=== PATIENT | female | born 1980 | race Caucasian/White ===

== ENCOUNTER 2018-01-08 10:49 | Day surgery (SDC) | payer BC ==
[2018-01-07 09:31] LABS: CHLORIDE,CL 106 mmol/L (98-107); SODIUM,NA 140 mmol/L (136-145)
[2018-01-08] MEDS ORDERED: Ondansetron 4 MG/2 ML SDV ONE (11:17)
[2018-01-08] MEDS ORDERED: Propofol 200 MG/20 ML SDV ONE (11:17)
[2018-01-08] MEDS ORDERED: fentaNYL 100 MCG/2 ML SDV ONE ×2 (11:17→11:27)
[2018-01-08] MEDS ORDERED: Midazolam 1 MG/ML 2 ML SDV ONE (11:17)
[2018-01-08] MEDS ORDERED: Glycopyrrolate 0.2 MG/ML SDV ONE (11:18)
[2018-01-08] MEDS ORDERED: Rocuronium 10 MG/ML 10 ML Syringe ONE (11:18)
[2018-01-08] MEDS ORDERED: Fluorescein 5 ML Vial ONE (11:19)
[2018-01-08] MEDS ORDERED: Methylene Blue 50 MG/10 ML Ampule ONE (11:19)
[2018-01-08] MEDS ORDERED: Bupivacaine 0.25% 10 ML SDV ONE (11:20)
[2018-01-08] MEDS: Lactated Ringers 1,000 ML IV SCH ×2 (11:23→11:32)
[2018-01-08] MEDS ORDERED: Scopolamine 1.5 MG Transdermal Patch TRDERM PRN (11:27)
--- NOTE | 2018-01-08 11:27 | PCM.PREANE ---
Preanesthetic Assessment - Anesthesia/Transfusion/Family Hx Anesthesia History: Prior Anesthesia Without Reaction Other Type of Anesthesia Reaction Comment: "mother has problems with N/V after anesthesia" Family History of Anesthesia Reaction: No Transfusion History: No Prior Transfusion(s) Intubation History: Unknown - Review of Systems General: No Symptoms Pulmonary: No Symptoms Cardiovascular: No Symptoms Gastrointestinal: No Symptoms Neurological: No Symptoms Other: Reports: None - Physical Assessment Height: 1.64 m Weight: 81.647 kg ASA Class: 2 Mental Status: Alert & Oriented x3 Airway Class: Mallampati = 2 Dentition: Reports: Normal Dentition Thyro-Mental Finger Breadths: 3 Mouth Opening Finger Breadths: 3 ROM/Head Extension: Full Lungs: Clear to Auscultation, Normal Respiratory Effort Cardiovascular: Regular Rate, Regular Rhythm - Lab Values: Laboratory Last Values WBC 7.91 K/uL (4.0-11.0) 01/07/18 08:35 RBC 4.75 M/uL (4.30-5.90) 01/07/18 08:35 Hgb 15.1 g/dL (12.0-16.0) 01/07/18 08:35 Hct 43.4 % (36.0-46.0) 01/07/18 08:35 MCV 91.4 fL (80.0-98.0) 01/07/18 08:35 MCH 31.8 pg (27.0-32.0) 01/07/18 08:35 MCHC 34.8 g/dL (31.0-37.0) 01/07/18 08:35 RDW Std Deviation 42.9 fl (28.0-62.0) 01/07/18 08:35 RDW Coeff of Kristie 13 % (11.0-15.0) 01/07/18 08:35 Plt Count 257 K/uL (150-400) 01/07/18 08:35 MPV 10.70 fL (7.40-12.00) 01/07/18 08:35 Nucleated RBC % 0.0 /100WBC 01/07/18 08:35 Nucleated RBCs # 0 K/uL 01/07/18 08:35 Sodium 140 mmol/L (136-145) 01/07/18 08:35 Potassium 4.3 mmol/L (3.5-5.1) 01/07/18 08:35 Chloride 106 mmol/L (98-107) 01/07/18 08:35 Carbon Dioxide 24.8 mmol/L (21.0-32.0) 01/07/18 08:35 BUN 10 mg/dL (7.0-18.0) 01/07/18 08:35 Creatinine 0.9 mg/dL (0.6-1.0) 01/07/18 08:35 Est Cr Clr Drug Dosing 76.92 mL/min 01/07/18 08:35 Estimated GFR (MDRD) > 60.0 ml/min 01/07/18 08:35 Glucose 104 mg/dL (74-106) 01/07/18 08:35 Calcium 8.9 mg/dL (8.5-10.1) 01/07/18 08:35 HCG, Qual NEGATIVE (NEG) 01/07/18 08:35 Blood Type O POSITIVE 01/07/18 08:35 Antibody Screen NEGATIVE 01/07/18 08:35 - Allergies Allergies/Adverse Reactions: Allergies Allergy/AdvReac Type Severity Reaction Status Date / Time Antihistamines - Alkylamine Allergy Seizure Verified 01/02/18 09:10 - Blood Blood Available: No - Anesthesia Plan Pre-Op Medication Ordered: None - Acknowledgements Anesthesia Type Planned: General Anesthesia Pt an Appropriate Candidate for the Planned Anesthesia: Yes Alternatives and Risks of Anesthesia Discussed w Pt/Guardian: Yes Pt/Guardian Understands and Agrees with Anesthesia Plan: Yes PreAnesthesia Questionnaire - Past Health History Medical/Surgical History: Denies Medical/Surgical History HEENT History: Other HEENT History: wears contacts/glasses Cardiovascular History: Reports: None Respiratory History: Reports: None Gastrointestinal History: Reports: None Genitourinary History: Reports: None 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: , Other (See Below) (ovarian cyst) Other OB/BYN History: bilateral breast reduction Musculoskeletal History: Reports: Fracture Other Musculoskeletal History: hx fx foot Neurological History: Reports: Seizure Other Neuro History: seizure due to reaction to antihistamine or high fever, last one in Psychiatric History: Reports: None Endocrine/Metabolic History: Reports: Obesity/BMI 30+ Hematologic History: Reports: None Dermatologic History: Reports: None - Infectious Disease History Infectious Disease History: Reports: Chicken Pox - Past Surgical History Head Surgeries/Procedures: Reports: None Female Surgical History: Reports: Breast Reduction, Other (See Below) Other Female Surgeries/Procedures: ESSURE - SUBSTANCE USE Smoking Status *Q: Former Smoker Second Hand Smoke Exposure: No Days Per Week of Alcohol Use: 0 Recreational Drug Use History: No - HOME MEDS Home Medications: Home Meds Ibuprofen 3 - 4 tab PO ASDIRECTED PRN 01/02/18 [History] - CURRENT (IN HOUSE) MEDS Current Meds: Current Medications Lactated Ringer's (Ringers, Lactated) 1,000 mls @ 100 mls/hr IV ASDIRECTED [facility]ON Last Admin: 01/08/18 11:23 Dose: 100 mls/hr Discontinued Medications Bupivacaine HCl (Sensorcaine-Mpf 0.25%) Confirm Administered Dose 10 ml .ROUTE .STK-MED ONE Stop: 01/08/18 11:21 Fentanyl (Sublimaze) Confirm Administered Dose 100 mcg .ROUTE .STK-MED ONE Stop: 01/08/18 11:18 Fluorescein Sodium (Ak-Fluor) Confirm Administered Dose 5 ml .ROUTE .STK-MED ONE Stop: 01/08/18 11:20 Glycopyrrolate (Robinul) Confirm Administered Dose 0.2 mg .ROUTE .STK-MED ONE Stop: 01/08/18 11:19 Methylene Blue (Provayblue) Confirm Administered Dose 50 mg .ROUTE .STK-MED ONE Stop: 01/08/18 11:20 Midazolam HCl (Versed 1 Mg/Ml) Confirm Administered Dose 2 mg .ROUTE .STK-MED ONE Stop: 01/08/18 11:18 Ondansetron HCl (Zofran) Confirm Administered Dose 4 mg .ROUTE .STK-MED ONE Stop: 01/08/18 11:18 Propofol (Diprivan 20 Ml) Confirm Administered Dose 200 mg .ROUTE .STK-MED ONE Stop: 01/08/18 11:18 Rocuronium [place] (Zemuron) Confirm Administered Dose 100 mg .ROUTE .STK-MED ONE Stop: 01/08/18 11:19
[2018-01-08] MEDS ORDERED: Sodium Chloride 0.9% 20 ML ONE (11:43)
[2018-01-08] MEDS ORDERED: ceFAZolin 1 GM Vial ONE (11:43)
[2018-01-08] MEDS ORDERED: Sugammadex Sodium 200 MG/2 ML VIAL ONE (11:49)
[2018-01-08] MEDS ORDERED: Morphine 10 MG/ML Syringe ONE (12:48)
[2018-01-08] MEDS ORDERED: Furosemide 40 MG/4 ML VIAL ONE (13:04)
[2018-01-08] MEDS ORDERED: Arista AH Absorbable Hemostat ONE ×2 (13:22→13:23)
--- NOTE | 2018-01-08 14:03 | PCM.OPNOTE ---
- General Post-Op/Procedure Note Date of Surgery/Procedure: 01/08/18 Operative Procedure(s): laparoscopically assisted vaginal hysterectomy with bilateral salpingectomy and cystoscopy. Findings: Dark implants of endometriosis on the right uterosacral ligament, white implants of endometriosis on the left uterosacral ligament, with some retraction , adhesions between left ovary and left uterosacral ligament. Otherwise normal appearing uterus, tubes and ovaries, with Essure implants noted in the appropriate location in the proximal tube. Pre Op Diagnosis: menorrhagia Post-Op Diagnosis: Same and stage 2 endometriosis. Anesthesia Technique: General ET Tube Primary Surgeon: Shanika Douglas Secondary Surgeon: Amauri Joseph Anesthesia Provider: Henok Gomes Administrative Assistant Data Entry: Parker Peguero Pathology: uterus, and bilateral fallopian tubes with Essure implant to pathology. Tissue to be retained and sent to patient's defense attorney Fluid Replacement, Intraop: 1,600 EBL in mLs: 100 Complications: None Known. Condition: Good
[2018-01-08] MEDS ORDERED: Acetaminophen/oxyCODONE 325-5 MG Tab PO PRN (14:04)
[2018-01-08] MEDS ORDERED: Ondansetron 4 MG/2 ML SDV IVPUSH PRN (14:04)
[2018-01-08] MEDS ORDERED: Ketorolac 30 MG/ML SDV IVPUSH ONE (14:04)
[2018-01-08] MEDS ORDERED: Promethazine 25 MG/ML SDV IM PRN (14:04)
[2018-01-08] MEDS ORDERED: Morphine 4 MG/ML Syringe IVPUSH PRN (14:04)
[2018-01-08] MEDS ORDERED: Ketorolac 30 MG/ML SDV IVPUSH SCH (14:15)
--- NOTE | 2018-01-08 15:10 | OR ---
SURGEON: Shanika Douglas M.D. DATE OF PROCEDURE: 01/08/2018 PREOPERATIVE DIAGNOSIS: Menorrhagia. POSTOPERATIVE DIAGNOSES: Menorrhagia and stage II endometriosis. ANESTHESIA: General endotracheal. WEBSPHERE PORTAL DEVELOPER: Amauri Joseph. ESTIMATED BLOOD LOSS: 100 mL. FLUID: 1600 mL of crystalloid. FINDINGS: There were endometriotic implants, dark implants on the right uterosacral ligament, and white scarred implants on the left uterosacral ligament with a dense adhesion between the left ovary and the left uterosacral ligament. The uterus, tubes, and ovaries otherwise appeared normal with Essure coils appropriately placed in the proximal tube. Upon cystoscopy, there was good copious flow of bright green urine from bilateral ureteral orifices without any evidence of trauma to the bladder mucosa. COMPLICATIONS: None known. DISPOSITION: Stable to recovery. BRIEF HISTORY: This is a 37-year-old female, she is G2, P2. She presented with complaint of heavy periods. She was counseled regarding options including Mirena IUD, endometrial ablation, or hysterectomy. After discussion of benefits and risks of each, she would like to proceed with hysterectomy with bilateral salpingectomy for risk reduction of ovarian cancer and also for removal of Essure devices, which she has concern are causing pain in her pelvis. 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 The hospital, pathology lab, and laboratory personnel were made aware of this and arrangements have been made for this to be done. Her endometrial thickness was 6 mm. Her age of 37 with definitive therapy performed. She did not require preoperative endometrial biopsy. Risks of the surgery including risk of bleeding, infection, thromboembolic event, injury to bowel, bladder, blood vessels, ureters or other organs, risk of anesthesia, risk of change in sexual function were discussed. Understanding all these issues, she does desire to proceed with laparoscopically- assisted vaginal hysterectomy with bilateral salpingectomy and cystoscopy. DESCRIPTION OF PROCEDURE: With the patient in dorsal lithotomy position, under adequate general endotracheal anesthesia, the abdomen was prepped with chlorhexidine. The vagina was prepped with Betadine and draped in usual fashion for a laparoscopically- assisted vaginal surgery. SCDs were in place. Parish catheter had been placed and backfilled with 30 mL of dilute methylene blue, and she had also received Ancef 2 g IV. After an appropriate time-out was held, bimanual examination revealed a 10-week size mobile uterus. Speculum was placed in the vagina. The ZUMI uterine manipulator was placed into the uterine cavity, which had sounded to 9 cm. The balloon was filled with 5 mL of air. The speculum was removed. The crochet machine operator's gloves were changed. Attention was then turned abdominally, where 3 mL of 0.25% Marcaine were injected inferior to the umbilicus. An 8 mm incision was made with a scalpel. The anterior abdominal wall was elevated and Veress needle was inserted. Opening pressure was 3 mmHg. CO2 was insufflated to develop an adequate pneumoperitoneum of 13 mmHg. The 8 mm trocar was placed, and the laparoscope was placed via the trocar into the abdominal cavity with excellent visualization. There was no evidence of any trauma from the trocar placement. Two additional trocars were placed, 2 cm medial and cephalad from the anterior superior iliac spine on the right and the left under direct visualization without any difficulty. The uterus was elevated immediately, there was noted to be adhesion on the left ovary to the left uterosacral ligament. With dark implants on the right uterosacral ligament of endometriosis and later implants with retraction on the left uterosacral ligament of endometriosis, the adhesion was lysed with LigaSure. The left tube was then grasped and the tip of the tube was from the ovary. The mesosalpinx was ligated and cut proximally using the LigaSure to the uterine cornua. The LigaSure was then used to cross clamp the utero-ovarian ligament as well as doubly ligated and cut the round ligament. The broad ligament was then opened. The anterior leaf was entered, hydrodissection was performed. The anterior leaf was opened anteriorly over the cervix to develop an adequate bladder flap. The posterior leaf was further dissected away isolating the uterine vessels in a skeletonized manner. They were doubly ligated and cut using the LigaSure. This process was repeated on the right side. Note that the right tube was transected in the process of ligating the mesosalpinx and was sent with the entire specimen to Pathology. Once the right uterine vessels had been skeletonized and ligated as described on the opposite side, attention was then turned vaginally. Prior to proceeding with the dissection the ureters were identified in the medial leaf of the broad round ligament on the right and the left and were well below the field of dissection. The abdomen was desufflated. The patient was placed in high Trendelenburg position. The weighted speculum was placed posteriorly. The right-angle retractor was placed anteriorly. The cervix was grasped with a Christy tenaculum. The bladder was released to drain the urine and methylene blue. The cervix was circumscribed using electrocautery, and a finger was used to enter the peritoneal cavity anteriorly. A sharp dissection was used to enter the peritoneal cavity posteriorly. Winnie weighted speculum was placed posteriorly and a right-angle retractor was placed anteriorly. The uterosacral ligaments were cross clamped, cut, and ligated using 2-0 Polysorb with a Sisi type ligature. One additional pedicle was remaining on the right and left, this was cross clamped, cut, and ligated using a Sisi ligature of 2-0 Polysorb. The uterus and tubes were then delivered vaginally, and the pedicles were inspected and were hemostatic. The retained uterosacral ligaments were ligated to the vaginal apices bilaterally. The vaginal cuff was closed anteriorly to posteriorly in a running locked fashion using 0 Polysorb. The catheter was removed. The patient had been given IV fluorescein and Lasix, and there was cystoscopy was performed with excellent visualization. There was no evidence of any trauma to the bladder mucosa. Bilateral ureteral orifices showed copious flow of bright green urine. This being completed, the catheter was replaced, the vagina was again inspected and was hemostatic. The abdomen was then reinsufflated after the crochet machine operator's gloves were changed. The laparoscope was placed into the abdominal cavity, and the pelvis was copiously irrigated and inspected. There was a small area of bleeding adjacent to the right uterosacral ligament that was cauterized and Endo Avitene was placed. This being completed, the pelvis being completely hemostatic, the abdomen was desufflated. The ports were removed and the deep subcutaneous tissue was closed with [id number] suture of 4-0 Monocryl. The skin was closed with running subcuticular suture of 4-0 Monocryl. The vagina was again inspected and was hemostatic. Final sponge, needle, and instrument counts were reported as correct. There were no known complications. The patient was transferred to recovery in good condition. RADHA / LALA /[id number]
[2018-01-08] MEDS: Ketorolac 30 MG/ML SDV IVPUSH SCH (18:52)
[2018-01-09] MEDS: Ketorolac 30 MG/ML SDV IVPUSH SCH ×2 (00:41→07:06)
[2018-01-09 06:05] LABS: CHLORIDE,CL 104 mmol/L (98-107); SODIUM,NA 139 mmol/L (136-145)
--- NOTE | 2018-01-09 06:27 | PCM48HPAN ---
Post Anesthesia Note - EVALUATION WITHIN 48HRS OF ANESTHETIC Vital Signs in Normal Range: Yes Patient Participated in Evaluation: Yes Respiratory Function Stable: Yes Airway Patent: Yes Cardiovascular Function Stable: Yes Hydration Status Stable: Yes Pain Control Satisfactory: Yes Nausea and Vomiting Control Satisfactory: Yes Mental Status Recovered: Yes Resp Rate: 18
--- NOTE | 2018-01-09 08:18 | PCM.SURGPN ---
- General Info Date of Service: 01/09/18 Date of Surgery/Procedure: 01/08/18 POD#: 1 Post-Op Diagnosis: menorrhagia, endometriosis Functional Status: Reports: Pain Controlled, Tolerating Diet, Urinating - Review of Systems General: Reports: No Symptoms HEENT: Reports: No Symptoms Pulmonary: Reports: No Symptoms Cardiovascular: Reports: No Symptoms Gastrointestinal: Reports: No Symptoms Genitourinary: Reports: No Symptoms Musculoskeletal: Reports: No Symptoms Skin: Reports: No Symptoms Neurological: Reports: No Symptoms Psychiatric: Reports: No Symptoms - Patient Data Vitals - Most Recent: Last Vital Signs Temp 36.2 C 01/09/18 04:00 Pulse 63 01/09/18 04:00 Resp 18 01/09/18 06:27 BP 89/53 L 01/09/18 04:00 Pulse Ox 96 01/09/18 04:00 Weight - Most Recent: 81.647 kg I&O - Last 24 Hours: Intake & Output 01/08/18 01/09/18 01/09/18 22:59 06:59 14:59 Intake Total 100 800 Output Total 50 1050 Balance 50 -250 Lab Results Last 24 Hrs: Laboratory Results - last 24 hr 01/09/18 01/09/18 Range/Units 05:20 05:20 WBC 10.07 (4.0-11.0) K/uL RBC 4.29 L (4.30-5.90) M/uL Hgb 13.4 (12.0-16.0) g/dL Hct 38.8 (36.0-46.0) % MCV 90.4 (80.0-98.0) fL MCH 31.2 (27.0-32.0) pg MCHC 34.5 (31.0-37.0) g/dL RDW Std Deviation 40.8 (28.0-62.0) fl RDW Coeff of Kristie 13 (11.0-15.0) % Plt Count 269 (150-400) K/uL MPV 10.80 (7.40-12.00) fL Neut % (Auto) 78.6 (48.0-80.0) % Lymph % (Auto) 15.3 L (16.0-40.0) % Emanuel % (Auto) 6.1 (0.0-15.0) % Eos % (Auto) 0.0 (0.0-7.0) % Baso % (Auto) 0.0 (0.0-1.5) % Neut # (Auto) 7.9 H (1.4-5.7) K/uL Lymph # (Auto) 1.5 (0.6-2.4) K/uL Emanuel # (Auto) 0.6 (0.0-0.8) K/uL Eos # (Auto) 0.0 (0.0-0.7) K/uL Baso # (Auto) 0.0 (0.0-0.1) K/uL Nucleated RBC % 0.0 /100WBC Nucleated RBCs # 0 K/uL Sodium 139 (136-145) mmol/L Potassium 4.3 (3.5-5.1) mmol/L Chloride 104 (98-107) mmol/L Carbon Dioxide 29.6 (21.0-32.0) mmol/L BUN 9 (7.0-18.0) mg/dL Creatinine 0.9 (0.6-1.0) mg/dL Est Cr Clr Drug Dosing 76.92 mL/min Estimated GFR (MDRD) > 60.0 ml/min Glucose 136 H (74-106) mg/dL Calcium 9.3 (8.5-10.1) mg/dL Med Orders - Current: Current Medications Lactated Ringer's (Ringers, Lactated) 1,000 mls @ 100 mls/hr IV ASDIRECTED [facility] Last Admin: 01/08/18 11:32 Dose: 100 mls/hr Ketorolac Tromethamine (Toradol) 30 mg IVPUSH Q6H [facility] Stop: 01/13/18 14:04 Last Admin: 01/09/18 07:06 Dose: 30 mg Morphine Sulfate (Morphine) 4 mg IVPUSH Q2H PRN PRN Reason: Pain (severe 7-10) Last Admin: 01/08/18 17:33 Dose: 4 mg Ondansetron HCl (Zofran) 4 mg IVPUSH Q6H PRN PRN Reason: Nausea/Vomiting Last Admin: 01/08/18 17:22 Dose: 4 mg Oxycodone/Acetaminophen (Percocet 325-5 Mg) 2 tab PO Q4H PRN PRN Reason: Pain (moderate 4-6) Last Admin: 01/08/18 15:00 Dose: 2 tab Promethazine HCl (Phenergan) 25 mg IM Q6H PRN PRN Reason: Nausea/Vomiting Scopolamine (Transderm-Scop) 1.5 mg TRDERM Q72H PRN PRN Reason: Nausea Last Admin: 01/08/18 11:38 Dose: 1.5 mg Discontinued Medications Bupivacaine HCl (Sensorcaine-Mpf 0.25%) Confirm Administered Dose 10 ml .ROUTE .STK-MED ONE Stop: 01/08/18 11:21 Cefazolin Sodium (Ancef) Confirm Administered Dose 2 gm .ROUTE .STK-MED ONE Stop: 01/08/18 11:44 Fentanyl (Sublimaze) Confirm Administered Dose 100 mcg .ROUTE .STK-MED ONE Stop: 01/08/18 11:18 Fentanyl (Sublimaze) Confirm Administered Dose 100 mcg .ROUTE .STK-MED ONE Stop: 01/08/18 11:28 Fluorescein Sodium (Ak-Fluor) Confirm Administered Dose 5 ml .ROUTE .STK-MED ONE Stop: 01/08/18 11:20 Furosemide (Lasix) Confirm Administered Dose 40 mg .ROUTE .STK-MED ONE Stop: 01/08/18 13:05 Glycopyrrolate (Robinul) Confirm Administered Dose 0.2 mg .ROUTE .STK-MED ONE Stop: 01/08/18 11:19 Sodium Chloride (Normal Saline) Confirm Administered Dose 20 mls @ as directed .ROUTE .STK-MED ONE Stop: 01/08/18 11:44 Acetaminophen (Ofirmev) Confirm Administered Dose 100 mls @ as directed IV .STK- MED ONE Stop: 01/08/18 11:50 Ketorolac Tromethamine (Toradol) 30 mg IVPUSH ONETIME ONE Stop: 01/08/18 14:05 Last Admin: 01/08/18 15:10 Dose: Not Given Ketorolac Tromethamine (Toradol) 30 mg IVPUSH Q6H [facility] Stop: 01/13/18 14:04 Last Admin: 01/08/18 15:40 Dose: Not Given Methylene Blue (Provayblue) Confirm Administered Dose 50 mg .ROUTE .STK-MED ONE Stop: 01/08/18 11:20 Midazolam HCl (Versed 1 Mg/Ml) Confirm Administered Dose 2 mg .ROUTE .STK-MED ONE Stop: 01/08/18 11:18 Morphine Sulfate (Morphine) Confirm Administered Dose 10 mg .ROUTE .STK-MED ONE Stop: 01/08/18 12:49 Non-Formulary Medication (Nico Ah Absorbable Hemostat) Confirm Administered Dose 1 each .ROUTE .STK-MED ONE Stop: 01/08/18 13:23 Non-Formulary Medication (Nico Ah Absorbable Hemostat) Confirm Administered Dose 2 each .ROUTE .STK-MED ONE Stop: 01/08/18 13:24 Ondansetron HCl (Zofran) Confirm Administered Dose 4 mg .ROUTE .STK-MED ONE Stop: 01/08/18 11:18 Propofol (Diprivan 20 Ml) Confirm Administered Dose 200 mg .ROUTE .STK-MED ONE Stop: 01/08/18 11:18 Rocuronium [place] (Zemuron) Confirm Administered Dose 100 mg .ROUTE .STK-MED ONE Stop: 01/08/18 11:19 - Exam Wound/Incisions: Dressing Dry and Intact General: Alert, Oriented HEENT: Pupils Equal Neck: Supple Lungs: Clear to Auscultation, Normal Respiratory Effort Cardiovascular: Regular Rate, Regular Rhythm GI/Abdominal Exam: Normal Bowel Sounds, Soft, Non-Tender, No Organomegaly, No Distention, No Abnormal Bruit, No Mass, Pelvis Stable Extremities: No Pedal Edema, Normal Capillary Refill Skin: Warm, Dry, Intact Neurological: No New Focal Deficit Psy/Mental Status: Alert, Normal Affect, Normal Mood - Problem List & Annotations (1) Menorrhagia SNOMED Code(s): 300317146 Code(s): N92.0 - EXCESSIVE AND FREQUENT MENSTRUATION WITH REGULAR CYCLE Status: Acute Current Visit: Yes - Problem List Review Problem List Initiated/Reviewed/Updated: Yes - My Orders Last 24 Hours: Active Orders 24 hr Category Date Time Status Patient Status [ADT] Routine ADT 01/08/18 14:04 Active Notify Provider Intake and Out [RC] ASDIRECTED Care 01/08/18 14:04 Active Notify Provider Vital Signs [RC] ASDIRECTED Care 01/08/18 14:04 Active RT Incentive Spirometry [RC] Q2HWA Care 01/08/18 14:04 Active Up With Assistance [RC] PER UNIT ROUTINE Care 01/08/18 14:04 Active Up ad Mayuri [RC] PER UNIT ROUTINE Care 01/08/18 14:04 Active Vital Signs [RC] Q4H Care 01/08/18 14:04 Active Regular Diet [DIET] Diet 01/08/18 Dinner Active Surgical Specimen Breast [MY] Routine Exams 01/08/18 15:14 Taken Acetaminophen/oxyCODONE [Percocet 325-5 MG] Med 01/08/18 14:04 Active 2 tab PO Q4H PRN Ketorolac [Toradol] Med 01/08/18 19:30 Active 30 mg IVPUSH Q6H Morphine Med 01/08/18 14:04 Active 4 mg IVPUSH Q2H PRN Ondansetron [Zofran] Med 01/08/18 14:04 Active 4 mg IVPUSH Q6H PRN Promethazine [Phenergan] Med 01/08/18 14:04 Active 25 mg IM Q6H PRN Scopolamine [Transderm-Scop] Med 01/08/18 11:27 Active 1.5 mg TRDERM Q72H PRN Peripheral IV Discontinue [OM.PC] Routine Oth 01/08/18 14:04 Ordered Sequential Compression Device [OM.PC] Per Unit Routine Oth 01/08/18 14:04 Ordered Resuscitation Status Routine Resus Stat 01/08/18 14:04 Ordered Medication Orders Lactated Ringer's (Ringers, Lactated) 1,000 mls @ 100 mls/hr IV ASDIRECTED [facility] Last Admin: 01/08/18 11:32 Dose: 100 mls/hr Infusion: 01/08/18 11:32 Dose: 100 mls/hr Admin: 01/08/18 11:23 Dose: 100 mls/hr Ketorolac Tromethamine (Toradol) 30 mg IVPUSH Q6H [facility] Stop: 01/13/18 14:04 Last Admin: 01/09/18 07:06 Dose: 30 mg Admin: 01/09/18 00:41 Dose: 30 mg Admin: 01/08/18 18:52 Dose: 30 mg Morphine Sulfate (Morphine) 4 mg IVPUSH Q2H PRN PRN Reason: Pain (severe 7-10) Last Admin: 01/08/18 17:33 Dose: 4 mg Ondansetron HCl (Zofran) 4 mg IVPUSH Q6H PRN PRN Reason: Nausea/Vomiting Last Admin: 01/08/18 17:22 Dose: 4 mg Oxycodone/Acetaminophen (Percocet 325-5 Mg) 2 tab PO Q4H PRN PRN Reason: Pain (moderate 4-6) Last Admin: 01/08/18 15:00 Dose: 2 tab Promethazine HCl (Phenergan) 25 mg IM Q6H PRN PRN Reason: Nausea/Vomiting Scopolamine (Transderm-Scop) 1.5 mg TRDERM Q72H PRN PRN Reason: Nausea Last Admin: 01/08/18 11:38 Dose: 1.5 mg - Assessment Assessment (Free Text/Narrative):: POD#1 after LAVH, with bilateral salpingectomy and cystoscopy. She is stable, ambulating tolerating diet with pain well controlled. I reviewed operative findings including stage II endometriosis with some adhesions on the left between ovary and endometriosis on left uterosacral ligament. - Plan Plan (Free Text/Narrative):: Dismiss to home today, precautions reviewed.
[2018-01-09 09:26] VITALS: BP 106/58
--- NOTE | 2018-01-09 13:39 | MY ---
EXAMINATION: Surgical specimen radiograph HISTORY: Check for Essure devices COMPARISON: None TECHNIQUE: Single specimen radiograph identified. FINDINGS/IMPRESSION: A specimen radiograph demonstrates 2 linear metallic devices within the cornual to proximal fallopian tubes bilaterally consistent with Essure devices which appear to be intact. Tyrel ng the radiographic right side a partial fallopian tube is noted which does not appear to contain a p ortion of the devices.
== END 2018-01-09 09:30 | disposition home or self-care (01) ==
LOC: MW.SDS 10:49 → MW.MS 15:28 → MW.SDS 01-09 09:30
PROVIDERS: ATTEND Obstetrics & Gynecology
DX: N87.9 Dysplasia of cervix uteri, unspecified (principal); N80.0 Endometriosis of uterus; N73.6 Female pelvic peritoneal adhesions (postinfective); N83.8 Other noninflammatory disorders of ovary, fallopian tube and broad ligament; N72 Inflammatory disease of cervix uteri; N88.8 Other specified noninflammatory disorders of cervix uteri; N92.0 Excessive and frequent menstruation with regular cycle; E66.9 Obesity, unspecified; Z68.30 Body mass index [BMI] 30.0-30.9, adult; Z88.8 Allergy status to other drugs, medicaments and biological substances; Z87.891 Personal history of nicotine dependence
CPT/HCPCS: 36415; 58552; 76098; 80048; 84703; 85025; 85027; 86850; 86900; 86901; A9270; J0690; J1885; J1940; J2250; J2270; J2405; J3010; J3490; J7120; 00944; 88307; J2704

== ENCOUNTER 2022-10-31 20:10 | Emergency (ER) | payer BC ==
[2022-10-31 21:00] LABS: CORONAVIRUS COVID-19 NAA NEGATIVE (NEGATIVE); INFLUENZA A NAA NEGATIVE (NEGATIVE); INFLUENZA B NAA NEGATIVE (NEGATIVE)
[2022-10-31 21:32] VITALS: BP 116/72; PULSE 89
== END 2022-10-31 21:15 | disposition home or self-care (01) ==
LOC: MW.ED 20:10
DX: J06.9 Acute upper respiratory infection, unspecified (principal); E66.9 Obesity, unspecified; Z68.35 Body mass index [BMI] 35.0-35.9, adult; Z20.822 Contact with and (suspected) exposure to COVID-19
CPT/HCPCS: 0240U; 71045; 99285

== ENCOUNTER 2023-02-13 05:10 | Emergency (ER) | payer BC ==
[2023-02-13] MEDS ORDERED: Morphine 2 MG/ML SYRINGE IVPUSH ONE (05:42)
[2023-02-13] MEDS ORDERED: Ondansetron 4 MG/2 ML SDV IVPUSH ONE (05:42)
[2023-02-13] MEDS ORDERED: Pantoprazole 80 MG in Sodium Chloride 0.9% 10 ML IVPUSH ONE (05:42)
[2023-02-13] MEDS ORDERED: Sodium Chloride 0.9% 1,000 ML IV ONE (05:42)
[2023-02-13 05:47] LABS: BASOPHILS PERCENT AUTO 0.3 % (0.0-1.5); EOSINOPHILS ABSOLUTE AUTO 0.4 K/uL (0.0-0.7); EOSINOPHILS PERCENT AUTO 4.2 % (0.0-7.0); HEMOGLOBIN 15.1 g/dL (12.0-16.0); LYMPHOCYTES ABSOLUTE AUTO 4.3 K/uL (0.6-2.4); MEAN CORPUSCULAR HEMOGLOBIN 30.8 pg (27.0-32.0); MEAN CORPUSCULAR HGB CONC 34.3 g/dL (31.0-37.0); MEAN CORPUSCULAR VOLUME 89.6 fL (80.0-98.0); MONOCYTES ABSOLUTE AUTO 0.5 K/uL (0.0-0.8); MONOCYTES PERCENT AUTO 5.2 % (0.0-15.0); NEUTROPHILS ABSOLUTE AUTO 4.7 K/uL (1.4-5.7); NEUTROPHILS PERCENT AUTO 47.3 % (48.0-80.0); NRBC ABSOLUTE 0 K/uL; PLATELET COUNT,PLT 283 K/uL (150-400); RED BLOOD CELL COUNT 4.91 M/uL (4.30-5.90); WHITE BLOOD CELL COUNT,WBC 10.01 K/uL (4.0-11.0)
[2023-02-13] MEDS ORDERED: fentaNYL 50 MCG/ML SDV IVPUSH ONE (05:57)
[2023-02-13 06:08] LABS: CALCIUM 9.3 mg/dL (8.5-10.1); CARBON DIOXIDE,CO2 26.9 mmol/L (21.0-32.0); EST CRCL DRUG DOSING (CG) 64.58 mL/min; POTASSIUM,K 4.2 mmol/L (3.5-5.1)
[2023-02-13 06:13] LABS: A/G RATIO 1.1 (0.9-1.6); ALBUMIN 3.9 g/dL (3.4-5.0); BILIRUBIN DIRECT 0.1 mg/dL (0.0-0.5); BILIRUBIN INDIRECT 0.6; BILIRUBIN TOTAL 0.7 mg/dL (0.2-1.0); PROTEIN TOTAL,TP 7.6 g/dL (6.4-8.2)
[2023-02-13 06:19] LABS: AMORPHOUS SEDIMENT,URINE MANY (NEGATIVE); APPEARANCE,URINE SLT CLOUDY; BACTERIA,URINE FEW (NEGATIVE); BILIRUBIN,URINE NEGATIVE (NEGATIVE); COLOR,URINE YELLOW; EPITHELIAL CELLS,URINE FEW (NONE-FEW); GLUCOSE,URINE NEGATIVE (NEGATIVE); KETONES,URINE NEGATIVE (NEGATIVE); LEUKOCYTE ESTERASE,URINE NEGATIVE (NEGATIVE); NITRITE,URINE NEGATIVE (NEGATIVE); OCCULT BLOOD,URINE NEGATIVE (NEGATIVE); PROTEIN,URINE NEGATIVE (NEGATIVE); RBC,URINE 0-2 (0-2/HPF); UROBILINOGEN,URINE 0.2 EU/dL (<2.0)
[2023-02-13 06:20] LABS: WBC,URINE 0-2 (0-5/HPF)
[2023-02-13] MEDS ORDERED: Iopamidol 755 MG/ML 500 ML Multipack Bottle IVPUSH STA (06:59)
[2023-02-13 08:57] VITALS: BP 128/76; PULSE 74
== END 2023-02-13 09:14 | disposition home or self-care (01) ==
LOC: MW.ED 05:10
DX: R10.13 Epigastric pain (principal); E66.9 Obesity, unspecified; Z68.33 Body mass index [BMI] 33.0-33.9, adult; Z88.5 Allergy status to narcotic agent
CPT/HCPCS: 36415; 74177; 80048; 80076; 81001; 83690; 85025; 86850; 86900; 86901; 96361; 96374; 96375; 99284; C9113; J2405; J3010; J3490; J7030; Q9967

== ENCOUNTER 2023-04-06 06:23 | Day surgery (SDC) | payer BC ==
[~2023-04-06 06:23] MED LIST: Lactated Ringers 1,000 ML IV SCH
[2023-04-06] MEDS ORDERED: Propofol 200 MG/20 ML SDV ONE (07:48)
[2023-04-06] MEDS ORDERED: Lidocaine 2% 5 ML SDV ONE (07:48)
[2023-04-06] MEDS ORDERED: Lactated Ringers 1,000 ML IV SCH (08:15)
[2023-04-06 08:32] VITALS: BP 119/71; PULSE 81
== END 2023-04-06 08:55 | disposition home or self-care (01) ==
LOC: MW.SDS 06:23
PROVIDERS: ATTEND Surgery
DX: K29.50 Unspecified chronic gastritis without bleeding (principal); K44.9 Diaphragmatic hernia without obstruction or gangrene; K92.0 Hematemesis; J35.01 Chronic tonsillitis; J40 Bronchitis, not specified as acute or chronic; E66.9 Obesity, unspecified; R56.9 Unspecified convulsions; E28.2 Polycystic ovarian syndrome; Z90.49 Acquired absence of other specified parts of digestive tract; Z90.710 Acquired absence of both cervix and uterus; Z87.891 Personal history of nicotine dependence; Z88.8 Allergy status to other drugs, medicaments and biological substances; Z88.5 Allergy status to narcotic agent; Z68.32 Body mass index [BMI] 32.0-32.9, adult
CPT/HCPCS: 43239; J2704; J7120; 00731; J3490

== ENCOUNTER 2024-01-29 07:34 | Day surgery (SDC) | payer BC ==
[2024-01-28 10:07] LABS: CARBON DIOXIDE,CO2 25.9 mmol/L (21.0-32.0); CREATININE 1.1 mg/dL (0.6-1.0); EST CRCL DRUG DOSING (CG) 58.12 mL/min; POTASSIUM,K 4.2 mmol/L (3.5-5.1)
[2024-01-28 19:59] LABS: HEMATOCRIT 42.3 % (37.0-47.0); HEMOGLOBIN 14.7 g/dL (12.0-16.0); MEAN CORPUSCULAR HEMOGLOBIN 31.5 pg (28.0-32.0); MEAN CORPUSCULAR HGB CONC 34.8 g/dL (32.0-36.0); MEAN CORPUSCULAR VOLUME 90.6 fL (83.0-99.0); MEAN PLATELET VOLUME 11.9 fL (9.4-12.3); PLATELET COUNT,PLT 261 K/uL (150-400); RED BLOOD CELL COUNT 4.67 M/uL (4.10-5.30); WHITE BLOOD CELL COUNT,WBC 5.16 K/uL (3.9-11.3)
[~2024-01-29 07:34] MED LIST changes: -Lactated Ringers 1,000 ML IV SCH; +ceFAZolin 2 GM in Sodium Chloride 0.9% 50 ML IV ONE
[2024-01-29] MEDS ORDERED: Albuterol 0.083% 2.5 MG/3 ML Neb Soln NEB PRN (07:50)
[2024-01-29] MEDS ORDERED: Naloxone 0.4 MG/ML SDV IVPUSH PRN (07:50)
[2024-01-29] MEDS ORDERED: droPERidol 5 MG/2 ML SDV IVPUSH PRN (07:50)
[2024-01-29] MEDS ORDERED: Ondansetron 4 MG/2 ML SDV IVPUSH PRN (07:50)
[2024-01-29] MEDS ORDERED: HYDROmorphone 1 MG/ML Syringe IVPUSH PRN (07:50)
[2024-01-29] MEDS ORDERED: fentaNYL 50 MCG/ML SDV IVPUSH PRN (07:50)
[2024-01-29] MEDS ORDERED: Metoclopramide 10 MG/2 ML SDV IVPUSH PRN (07:50)
[2024-01-29] MEDS ORDERED: fentaNYL 250 MCG/5 ML SDV ONE (07:53)
[2024-01-29] MEDS ORDERED: propofoL 50 ML ONE (07:53)
[2024-01-29] MEDS ORDERED: Propofol 200 MG/20 ML SDV ONE (07:53)
[2024-01-29] MEDS: Lactated Ringers 1,000 ML IV SCH (07:56)
[2024-01-29] MEDS ORDERED: Bupivacaine 0.25% 30 ML SDV ONE (08:04)
[2024-01-29] MEDS ORDERED: Neomycin/Polymyxin B Bladder Irrigation 1 ML Amp ONE (08:05)
[2024-01-29] MEDS ORDERED: Tranexamic Acid 1,000 MG/10 ML Vial ONE (09:39)
[2024-01-29] MEDS ORDERED: ceFAZolin 2 GM Vial ONE (09:39)
[2024-01-29 10:54] VITALS: BP 104/65; PULSE 63
== END 2024-01-29 11:25 | disposition home or self-care (01) ==
LOC: MW.SDS 07:34
PROVIDERS: ATTEND Obstetrics & Gynecology
DX: N39.3 Stress incontinence (female) (male) (principal); N36.41 Hypermobility of urethra; K21.9 Gastro-esophageal reflux disease without esophagitis; E66.9 Obesity, unspecified; Z68.31 Body mass index [BMI] 31.0-31.9, adult; Z88.8 Allergy status to other drugs, medicaments and biological substances; Z88.5 Allergy status to narcotic agent; Z79.899 Other long term (current) drug therapy; Z87.891 Personal history of nicotine dependence
CPT/HCPCS: 36415; 57288; 80048; 84703; 85027; 86850; 86900; 86901; C1771; J0131; J0665; J0690; J2704; J3010; J7120; 00860; J3490